=== PATIENT | male | born 1980 | race African-American/Black ===

== ENCOUNTER 2016-11-03 14:24 | Emergency (ER) | payer SELFPAY ==
[~2016-11-03] VITALS: Ht 175.3 cm; Wt 88.6 kg
[2016-11-03 14:42] VITALS: BP 155/118; TEMP 98
[2016-11-03] MEDS ORDERED: PROTONIX 40MG T40 MG PO (14:46)
[2016-11-03 15:45] LABS: PH 6 (5-8); SQUAMOUS EPITHELIAL None Seen /hpf; URINE APPEARANCE Clear; URINE BACTERIA Rare /hpf; URINE BILIRUBIN Negative (NEGATIVE); URINE BLOOD Negative (NEGATIVE); URINE COLOR Yellow; URINE GLUCOSE Negative (NEGATIVE); URINE KETONE Negative (NEGATIVE); URINE UROBILINOGEN Negative (NEGATIVE); URINE WBC 0-2 /hpf
[2016-11-03 16:09] LABS: BASO % 0.5 % (0.0-2.0); EOS # 0.1 (0.0-0.7); EOS % 1.3 % (0-4.0); GRAN # 5.1 (1.4-6.5); GRAN % 59.6 % (42.2-75.2); HEMOGLOBIN 15.3 g/dl (13.5-18.0); LYMPH # 2.6 (1.2-3.4); LYMPH % 30.1 % (20.0-51.0); MEAN CELL VOLUME 91 fl (80.0-100.0); MEAN CORPUSCULAR HEMOGLOBIN 31 pg (27.0-31.0); MEAN CORPUSCULAR HGB CONC 34 g/dl (33.0-37.0); MEAN PLATELET VOLUME 9.8 fl (7.4-10.4); MONO # 0.7 (0.1-0.6); MONO % 8.1 % (1.7-9.3); PLATELET COUNT 321 K/mm3 (130-400); RED BLOOD COUNT 4.93 M/mm3 (4.20-5.60); WHITE BLOOD COUNT 8.5 K/mm3 (4.8-10.8)
[2016-11-03 16:21] LABS: ALANINE AMINOTRANSFERASE 40 U/L (21-72); ALBUMIN 4.1 gm/dL (3.5-5.0); ALKALINE PHOSPHATASE 89 U/L (50-136); ANION GAP 10 mmol/L (7-16); BILIRUBIN,TOTAL 0.7 mg/dL (0.0-1.0); BLOOD UREA NITROGEN 15 mg/dL (9-20); CALCIUM 9.1 mg/dL (8.4-10.2); CARBON DIOXIDE 27 mmol/L (22-30); CHLORIDE 103 mmol/L (98-107); CREATININE, serum 0.74 mg/dL (0.66-1.25); GLUCOSE 89 mg/dL (74-106); SODIUM 140 mmol/L (137-145); TOTAL PROTEIN 7.6 gm/dL (6.4-8.2)
[2016-11-03 16:25] LABS: C-REACTIVE PROTEIN < 0.5 mg/dL (0.0-0.9)
[2016-11-03 16:32] VITALS: PULSE 86
[2016-11-03 21:11] LABS: CHLAMYDIA/TRACH by PCR Male NOT DETECTED; Neisseria Gon by PCR Male NOT DETECTED
== END 2016-11-03 16:33 | disposition home or self-care (01) ==
LOC: COL.ER 14:24
PROVIDERS: Emergency Medicine
DX: R10.31 Right lower quadrant pain (principal)

== ENCOUNTER 2021-06-28 13:59 | Emergency (ER) | payer SELFPAY ==
[~2021-06-28] VITALS: Ht 175.3 cm; Wt 90.9 kg
[~2021-06-28 13:59] MED LIST: ASPIRIN 81M81 MG/TA2 PO; LASIX 20MG TABL20 MG PO; PROTONIX 40MG T40 MG PO; TOPROL XL 25MG25 MG PO; ZESTRIL 5MG5 MG PO
[2021-06-28 14:35] VITALS: BP 128/77; PULSE 95; TEMP 98.4
== END 2021-06-28 15:30 | disposition left against medical advice (07) ==
LOC: COL.ER 13:59
DX: R53.81 Other malaise (principal)

== ENCOUNTER 2021-08-29 12:42 | Inpatient (IN) | payer SELFPAY ==
[~2021-08-29] VITALS: Ht 175.3 cm; Wt 91.8 kg
[2021-08-29] MEDS ORDERED: LASIX 40MG TABL40 MG PO (13:00)
[2021-08-29 14:15] LABS: BASO # 0.1 K/mm3 (0.0-0.2); BASO % 0.6 % (0.0-2.0); EOS # 0.1 K/mm3 (0.0-0.7); EOS % 0.7 % (0.0-4.0); GRAN % 68.2 % (42.2-75.2); HEMATOCRIT 45.8 % (42.0-52.0); HEMOGLOBIN 15.3 g/dl (13.5-18.0); LYMPH # 2.3 K/mm3 (1.2-3.4); LYMPH % 22.4 % (20.0-51.0); MEAN CELL VOLUME 90 fl (80.0-100.0); MEAN CORPUSCULAR HEMOGLOBIN 30 pg (27-31); MEAN CORPUSCULAR HGB CONC 33 g/dl (33.0-37.0); MEAN PLATELET VOLUME 9.9 fl (7.4-10.4); MONO # 0.8 K/mm3 (0.1-0.6); MONO % 7.8 % (1.7-9.3); PLATELET COUNT 314 K/mm3 (130-400); RED BLOOD COUNT 5.11 M/mm3 (4.20-5.60)
[2021-08-29 14:30] LABS: ALBUMIN 3.4 gm/dL (3.5-5.0); BILIRUBIN,TOTAL 0.9 mg/dL (0.2-1.2); CALCIUM 8.8 mg/dL (8.4-10.2); CREATININE, serum 0.9 mg/dL (0.72-1.25); TOTAL PROTEIN 7.2 gm/dL (6.2-8.1)
[2021-08-29 14:44] LABS: TROPONIN-I 0.112 ng/mL (0.00-0.033)
[2021-08-29 16:19] LABS: INR 1.4 (0.8-3.0); PROTHROMBIN TIME 15.5 SECONDS (9.7-12.8)
[2021-08-29 16:22] LABS: PARTIAL THROMBOPLASTIN TIME 34.3 SECONDS (26.0-37.0)
[2021-08-29 19:17] VITALS: BP 125/96; PULSE 113; TEMP 97.6
--- NOTE | 2021-08-29 22:53 | NUR ---
Patient resting in bed upon enter the room at 18:50 pm. Patient A/Ox4. Patient denies chest pain. Patient reports intermittent SOB. Patient currently on oxygen 2L via NC. Breathing even and unlabored. No apparent distress noted. Heparin drip currently running at 16.5ml/hr. Oriented patient to the room. Call light in reach. Will continue to monitor.
--- NOTE | 2021-08-29 23:44 | NUR ---
Called by lab about Hep xa level of 1.29 at 23:40 pm. Stopped heparin drip at this time for 2 hours per protocol. Next PTT and Hep xa lab draw scheduled at 01:40 am. Will continue to monitor.
[2021-08-30] VITALS (7 sets, daily range): BP systolic 111–132; BP diastolic 79–103; PULSE 104–117; TEMP 97.3–98.6
[2021-08-30 02:41] LABS: PARTIAL THROMBOPLASTIN TIME 70.5 SECONDS (26.0-37.0)
--- NOTE | 2021-08-30 03:26 | NUR ---
Hep xa level 0.30 at 3 am. Decreased rate to 13.5 ml/hr at this time. Next Hep xa lab draw will be at 9 am.
[2021-08-30 06:21] LABS: BASO # 0.1 K/mm3 (0.0-0.2); BASO % 0.7 % (0.0-2.0); EOS # 0.1 K/mm3 (0.0-0.7); EOS % 1.1 % (0.0-4.0); GRAN # 6.5 K/mm3 (1.4-6.5); GRAN % 54.3 % (42.2-75.2); HEMATOCRIT 44.7 % (42.0-52.0); LYMPH # 4.1 K/mm3 (1.2-3.4); LYMPH % 34.6 % (20.0-51.0); MEAN CELL VOLUME 89 fl (80.0-100.0); MEAN CORPUSCULAR HEMOGLOBIN 30 pg (27-31); MEAN CORPUSCULAR HGB CONC 34 g/dl (33.0-37.0); MEAN PLATELET VOLUME 10.3 fl (7.4-10.4); MONO # 1.1 K/mm3 (0.1-0.6); MONO % 8.9 % (1.7-9.3); PLATELET COUNT 316 K/mm3 (130-400); RED BLOOD COUNT 5.01 M/mm3 (4.20-5.60)
[2021-08-30 06:29] LABS: CALCIUM 8.5 mg/dL (8.4-10.2); CHOLESTEROL RISK RATIO 6.5; CREATININE, serum 0.9 mg/dL (0.72-1.25); POTASSIUM 4.2 mmol/L (3.5-4.5)
--- NOTE | 2021-08-30 07:19 | NUR ---
CRITICAL TROPONIN CALLED TO DR NELSON WHO READ BACK THE RESULTS.
--- NOTE | 2021-08-30 13:18 | NUR ---
SW met with patient to discuss discharge plan. Patient's girlfriend Zee Medrano ([phone]) present at bedside. Patient states that he lives with his girlfriend in . 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 Patient is in the process of getting established with [facility] and [facility]. Preferred pharmacy is [facility] in . Patient reports that he does not have a DPOA-HC established and that he does have adult children who live in [place] but does not want them as his DPOA-HC and verbalizes that he would like his sister. Education provided and patient wished to receive DPOA-HC form, which i provide to him. Patient's only concern at this time is when he will be able to go home. Discharge plan: Home.
--- NOTE | 2021-08-30 18:29 | NUR ---
Scheduled medications given. Shift assessment performed. Patient currently requiring 2L of O2 and is Sating in the high 90's. C/O pressure in his chest and intermittent pain. Heparin gtt running at 13.5 ml. Hep xa supposed to be drawn at 1500, two lab techs and two nurses attempted to draw with no success. plant supervisor contacted and will attempt. CT of head done and results were negative. Patient currently resting in bed. Girlfriend at the bedside. Denies any further pain, discomfort, SOA, or further needs at this time. VSS. Patient A&O. Call light in reach.
--- NOTE | 2021-08-30 21:43 | NUR ---
Patient laying in bed with eyes closed upon enter the room. Girlfriend at bedside. Patient easily awake with voice. Patient reports SOB while at rest. Patient currently on 2L oxygen via NC. SPO2 98-100% on 2L oxygen. Heparin drip running at 13.5ml/hr. Hep xa 0.35 at 7pm. No change to current rate per protocol. Next Hep Xa lab draw at 1 am. Call light in reach. Will continue to monitor.
[2021-08-30 23:37] LABS: TRICYCLIC ANTIDEPRESS URINE NEGATIVE
--- NOTE | 2021-08-31 02:03 | NUR ---
Hep Xa 0.46 at 1am. Heparin drip currently running at 13.5 ml/hr. No change to current rate. Next Hep Xa lab draw at 7 am.
[2021-08-31 04:26] VITALS: BP 118/93; BP 18/93; PULSE 103; TEMP 97.5
--- NOTE | 2021-08-31 05:41 | NUR ---
Urine sample collected and sent to lab last night. UA result positive for Methamphetamine and Amphetamine. Patient c/o nausea around midnight. PRN Zofran given for nausea. Patient slept throughout the night. Call light in reach. Will continue to monitor.
[2021-08-31 07:11] LABS: HEMATOCRIT 45.2 % (42.0-52.0); HEMOGLOBIN 14.9 g/dl (13.5-18.0); MEAN CELL VOLUME 90 fl (80.0-100.0); MEAN CORPUSCULAR HEMOGLOBIN 30 pg (27-31); MEAN CORPUSCULAR HGB CONC 33 g/dl (33.0-37.0); MEAN PLATELET VOLUME 10.4 fl (7.4-10.4); PLATELET COUNT 315 K/mm3 (130-400); REDCELL DISTRIBUTION WIDTH-CV 14.6 % (11.5-14.5)
[2021-08-31 07:21] LABS: CALCIUM 8.6 mg/dL (8.4-10.2); CREATININE, serum 0.98 mg/dL (0.72-1.25); POTASSIUM 4.5 mmol/L (3.5-4.5)
[2021-08-31 08:15] VITALS: BP 111/69; PULSE 111; TEMP 97.9
--- NOTE | 2021-08-31 09:39 | NUR ---
Andi contacted to touch base with this patient to see if he qualifies for either NAVIN or MCR
[2021-08-31 11:28] VITALS: BP 123/98; PULSE 104; TEMP 98.3
[2021-08-31 16:00] VITALS: BP 115/69; PULSE 106; TEMP 98.4
--- NOTE | 2021-08-31 16:51 | NUR ---
Scheduled medications given. Shift assessment performed. Patient c/o this am that he had racing thoughts, was tossing and turning, and was becoming agitated. ANA Kraft notified, one time dose of ativan ordered. Upon reassessment of patient, he had become very drowsy and was calmly lying in bed. NOW dose of ativan held, provider notified. Patient currently has Heparin and Lasix gtt running as ordered. Patient states, "Chest pressure is starting to ease up." Patient denies any pain, discomfort, or further needs at this time. Call light in reach. VSS. Patient Alert and Oriented.
[2021-08-31 20:03] VITALS: BP 100/84; PULSE 111; TEMP 98.3
[2021-08-31 23:42] VITALS: BP 116/82; PULSE 104; TEMP 99.2
[2021-09-01 04:00] VITALS: BP 114/90; PULSE 101; TEMP 98.4
[2021-09-01 06:22] LABS: HEMATOCRIT 46.6 % (42.0-52.0); MEAN CELL VOLUME 87 fl (80.0-100.0); MEAN CORPUSCULAR HEMOGLOBIN 30 pg (27-31); MEAN CORPUSCULAR HGB CONC 34 g/dl (33.0-37.0); MEAN PLATELET VOLUME 10.7 fl (7.4-10.4); PLATELET COUNT 345 K/mm3 (130-400); RED BLOOD COUNT 5.33 M/mm3 (4.20-5.60); REDCELL DISTRIBUTION WIDTH-CV 14.4 % (11.5-14.5)
[2021-09-01 06:38] LABS: CALCIUM 9.1 mg/dL (8.4-10.2); CREATININE, serum 1.04 mg/dL (0.72-1.25); MAGNESIUM 2.4 mg/dL (1.6-2.6)
[2021-09-01 07:50] VITALS: BP 113/87; PULSE 99; TEMP 98.5
[2021-09-01 08:00] LABS: CALCIUM 8.4 mg/dL (8.4-10.2); CREATININE, serum 0.9 mg/dL (0.72-1.25); POTASSIUM 4.3 mmol/L (3.5-4.5)
--- NOTE | 2021-09-01 10:32 | NUR ---
First visit from the help desk support specialist. No needs right now.
[2021-09-01 11:33] VITALS: BP 105/81; PULSE 106; TEMP 97.8
--- NOTE | 2021-09-01 13:35 | NUR ---
CRITICAL HEP XA CALLED TO ANA SANCHEZ
--- NOTE | 2021-09-01 16:23 | NUR ---
Scheduled medcations given. Shift assessment performed. Patient states that chest pressure and pain are no longer present. Heparin gtt dc'd, lasix gtt running as ordered. Patient A&O. PICC line placed this AM. Patient is Tachy, all other VSS. Patient dneies any further pain, discomfort, SOA, or further needs at this time. Patient to be transferred to room 342. Report called to YONY Sanchez. Girlfriend, Zee, at the bedside.
[2021-09-01 16:26] VITALS: BP 100/70; PULSE 92; TEMP 97.5
--- NOTE | 2021-09-01 17:55 | NUR ---
Pt arrived to room 342 at this time, his girl friend is at bedside. Pt is A/O x4. His breathing is currently even and unlabored on RA at rest. He denies any pain at this time. HRR. Lungs CTA. +BS, abdomen soft and nontender. No swelling visualized. Lasix drip infusing per orderset. POC discussed with patient who verbalizes understanding. No needs at this time. Call light within reach.
[2021-09-01 19:50] VITALS: BP 105/66; PULSE 96; TEMP 98.3
[2021-09-01 23:59] VITALS: BP 101/74; PULSE 99; TEMP 98.6
--- NOTE | 2021-09-02 02:37 | NUR ---
Sitting up in bed eating sandwich box. Denies pain. States he is a little nauseas but doesnt want any medications at this time. States he just needs to eat. No other c/o at this time. Will monitor.
[2021-09-02 04:00] VITALS: BP 108/81; PULSE 100; TEMP 98.4
[2021-09-02 06:56] LABS: BASO # 0.1 K/mm3 (0.0-0.2); BASO % 0.6 % (0.0-2.0); EOS # 0.2 K/mm3 (0.0-0.7); EOS % 1.5 % (0.0-4.0); GRAN # 6.6 K/mm3 (1.4-6.5); GRAN % 63.3 % (42.2-75.2); HEMOGLOBIN 17.1 g/dl (13.5-18.0); LYMPH # 2.3 K/mm3 (1.2-3.4); LYMPH % 22.3 % (20.0-51.0); MEAN CELL VOLUME 88 fl (80.0-100.0); MEAN CORPUSCULAR HEMOGLOBIN 30 pg (27-31); MEAN CORPUSCULAR HGB CONC 34 g/dl (33.0-37.0); MEAN PLATELET VOLUME 10.6 fl (7.4-10.4); MONO # 1.2 K/mm3 (0.1-0.6); MONO % 11.7 % (1.7-9.3); PLATELET COUNT 349 K/mm3 (130-400); REDCELL DISTRIBUTION WIDTH-CV 14.6 % (11.5-14.5)
[2021-09-02 07:11] LABS: CALCIUM 9.2 mg/dL (8.4-10.2); CREATININE, serum 1.1 mg/dL (0.72-1.25); MAGNESIUM 2.4 mg/dL (1.6-2.6); POTASSIUM 3.9 mmol/L (3.5-4.5)
[2021-09-02 07:44] VITALS: BP 120/89; PULSE 81; TEMP 98.1
[2021-09-02] MEDS ORDERED: LASIX 40MG TABL40 MG PO (11:28)
[2021-09-02] MEDS ORDERED: ALDACTONE 25MG25 M1 PO (11:28)
[2021-09-02] MEDS ORDERED: ELIQUIS 5MG PO (11:28)
[2021-09-02] MEDS ORDERED: TOPROL XL 25MG25 MG PO (11:29)
[2021-09-02] MEDS ORDERED: ZESTRIL 5MG5 MG PO (11:29)
[2021-09-02 11:55] VITALS: BP 107/71; PULSE 94; TEMP 97.7
--- NOTE | 2021-09-02 12:44 | NUR ---
THIS NURSE SPOKE WITH PT'S SIGNIFICANT OTHER WHO WAS ON THE WAY TO SENIOR RECEPTIONIST PT FOR DISCHARGE. SHE UNDERSTOOD HE HAD DISCHARGE ORDERS BUT DISCHARGE PAPERWORK WAS STILL BEING WORKED ON. HOUSE KEEPING CAME TO DESK TO NOTIFIY PT HAD ALREADY LEFT PRIOR TO SIGNING DISCHARGE PAPERWORK, BELONGINGS NOT IN THE ROOM. THIS NURSE CALLED PATIENT'S PHONE NUMBER ON FILE AND IT IS NOT A WORKING NUMBER. IT IS UNSURE IF PATIENT HAS 30 DAY VOUCHER FOR [place]. FOLLOW UP APPT HAD NOT BEEN MADE YET WITH CARDIOLOGY.
--- NOTE | 2021-09-02 14:50 | NUR ---
Granite Sandblaster Apprentice attended clinical rounds with the team and patient will need a medication voucher. SW met with patient and completed a medication voucher for [facility] totaling $51.99. SW contacted [facility] and faxed voucher and prescriptions. Patient advised his girlfriend will take him by [facility] on the way home. Patient given instructions to follow up with [facility] to establish primary care.
== END 2021-09-02 12:30 | disposition home or self-care (01) | DRG 951 ==
LOC: COL.ER 12:42 → MEDICAL 17:23 → SURG 09-01 15:49
PROVIDERS: Internal Medicine; Physician Assistant; ADMIT Student in an Organized Health Care Education/Training Program
PROC: 02HV33Z Insertion of Infusion Device into Superior Vena Cava, Percutaneous Approach (ICD-10-PCS; principal; 2021-09-01)
DX: F17.210 Nicotine dependence, cigarettes, uncomplicated (principal); I26.99 Other pulmonary embolism without acute cor pulmonale; I21.A1 Myocardial infarction type 2; J96.01 Acute respiratory failure with hypoxia; I50.23 Acute on chronic systolic (congestive) heart failure; I42.8 Other cardiomyopathies; I11.0 Hypertensive heart disease with heart failure; R91.1 Solitary pulmonary nodule; Z20.822 Contact with and (suspected) exposure to COVID-19; I08.1 Rheumatic disorders of both mitral and tricuspid valves; R00.0 Tachycardia, unspecified; F19.10 Other psychoactive substance abuse, uncomplicated; Z86.16 Personal history of COVID-19
CPT/HCPCS: 99222-AI; 99232-AI; 99239; C1751; J1644; J1940; J2060; J2405; J7030; Q9967